=== PATIENT | female | born 1950 ===

== ENCOUNTER 2021-08-20 12:15 | Inpatient (IN) | payer OTHER ==
[~2021-08-20] VITALS: Ht 154.9 cm; Wt 54.9 kg
[2021-08-20] MEDS ORDERED: INTUNIV1 MG PO (15:38)
[2021-08-20] MEDS ORDERED: SIMVAST PO (15:38)
[2021-08-20] MEDS ORDERED: DILTIAZEM 24HR240 MG PO (15:39)
[2021-08-20] MEDS ORDERED: BACLOFEN10 MG PO (15:39)
[2021-08-20] MEDS ORDERED: TOPROL XL25 M1 PO (15:40)
[2021-08-20] MEDS ORDERED: ZESTRIL20 MG PO (15:40)
[2021-08-20] MEDS ORDERED: ADULT LOW DOSE81 M1 PO (15:41)
[2021-08-20] MEDS ORDERED: ATROPINE SULFATE2 M1 (15:42)
[2021-08-20] MEDS ORDERED: XALATAN (15:43)
[2021-08-22] MEDS ORDERED: SIMVASTATIN10 MG (09:23)
[2021-08-22] MEDS ORDERED: LATANOPROST2.5 ML (09:23)
[2021-08-22] MEDS ORDERED: RALOXIFENE HCL60 MG (09:23)
[2021-08-22] MEDS ORDERED: FLONASE16 GM (09:23)
== END 2021-08-23 11:34 | disposition home or self-care (01) | DRG 735 ==
LOC: O/R 08-21 06:00 → OB/GYN 08-21 06:00 → SURH 08-21 12:15 → SURG-SUITE 08-22 13:16
PROVIDERS: ADMIT Obstetrics & Gynecology Gynecologic Oncology; ATTEND Obstetrics & Gynecology Gynecologic Oncology
PROC: 0UT70ZZ Resection of Bilateral Fallopian Tubes, Open Approach (ICD-10-PCS; 2021-08-21)
PROC: 0UT20ZZ Resection of Bilateral Ovaries, Open Approach (ICD-10-PCS; 2021-08-21)
PROC: 0DNW0ZZ Release Peritoneum, Open Approach (ICD-10-PCS; 2021-08-21)
PROC: 0TN70ZZ Release Left Ureter, Open Approach (ICD-10-PCS; 2021-08-21)
PROC: 0TN60ZZ Release Right Ureter, Open Approach (ICD-10-PCS; 2021-08-21)
PROC: 0DBW0ZZ Excision of Peritoneum, Open Approach (ICD-10-PCS; 2021-08-21)
PROC: 0DTU0ZZ Resection of Omentum, Open Approach (ICD-10-PCS; 2021-08-21)
PROC: 3E1M38Z Irrigation of Peritoneal Cavity using Irrigating Substance, Percutaneous Approach (ICD-10-PCS; 2021-08-21)
PROC: 07TC0ZZ Resection of Pelvis Lymphatic, Open Approach (ICD-10-PCS; principal; 2021-08-21 16:00)
DX: D27.1 Benign neoplasm of left ovary (principal); Z20.822 Contact with and (suspected) exposure to COVID-19